=== PATIENT | male | born 1940 | race Two or more races ===

== ENCOUNTER 2017-11-05 09:27 | Outpatient (CLI) | payer BC | END 2017-11-05 09:46 | disposition home or self-care (01) | LOC: LAB 09:27 | DX: D70.2 Other drug-induced agranulocytosis (principal); D72.820 Lymphocytosis (symptomatic); I10 Essential (primary) hypertension; E78.2 Mixed hyperlipidemia; D50.8 Other iron deficiency anemias; D51.8 Other vitamin B12 deficiency anemias; B20 Human immunodeficiency virus [HIV] disease; B18.9 Chronic viral hepatitis, unspecified; D64.9 Anemia, unspecified; R10.9 Unspecified abdominal pain; E03.9 Hypothyroidism, unspecified; E78.5 Hyperlipidemia, unspecified; R80.9 Proteinuria, unspecified; E11.9 Type 2 diabetes mellitus without complications; R73.09 Other abnormal glucose; Z13.0 Encounter for screening for diseases of the blood and blood-forming organs and certain disorders involving the immune mechanism; Z13.220 Encounter for screening for lipoid disorders; Z13.29 Encounter for screening for other suspected endocrine disorder; I48.91 Unspecified atrial fibrillation; I48.92 Unspecified atrial flutter ==

== ENCOUNTER 2017-11-20 08:35 | Outpatient (CLI) | payer BC | END 2017-11-20 08:43 | disposition home or self-care (01) | LOC: LAB 08:35 | DX: I10 Essential (primary) hypertension (principal); I48.0 Paroxysmal atrial fibrillation; Z12.5 Encounter for screening for malignant neoplasm of prostate ==

== ENCOUNTER 2018-05-10 07:33 | Outpatient (CLI) | payer BC | END 2018-05-10 08:26 | disposition home or self-care (01) | LOC: LAB 07:33 | DX: E78.2 Mixed hyperlipidemia (principal); I48.0 Paroxysmal atrial fibrillation; I10 Essential (primary) hypertension; Z13.0 Encounter for screening for diseases of the blood and blood-forming organs and certain disorders involving the immune mechanism; E61.2 Magnesium deficiency; E55.9 Vitamin D deficiency, unspecified; Z13.29 Encounter for screening for other suspected endocrine disorder ==

== ENCOUNTER 2018-08-03 08:11 | Outpatient (CLI) | payer BC | END 2018-08-03 08:31 | disposition home or self-care (01) | LOC: LAB 08:11 | DX: D64.89 Other specified anemias (principal); R10.9 Unspecified abdominal pain; E78.49 Other hyperlipidemia ==

== ENCOUNTER 2018-10-29 12:05 | Outpatient (CLI) | payer BC | END 2018-10-29 16:26 | disposition home or self-care (01) | LOC: TOM 12:05 | DX: M54.2 Cervicalgia (principal); M15.4 Erosive (osteo)arthritis ==

== ENCOUNTER 2019-02-01 09:34 | Outpatient (CLI) | payer BC | END 2019-02-01 09:54 | disposition home or self-care (01) | LOC: LAB 09:34 | DX: E78.00 Pure hypercholesterolemia, unspecified (principal); I48.0 Paroxysmal atrial fibrillation; Z12.5 Encounter for screening for malignant neoplasm of prostate; E55.9 Vitamin D deficiency, unspecified; Z13.29 Encounter for screening for other suspected endocrine disorder; Z13.0 Encounter for screening for diseases of the blood and blood-forming organs and certain disorders involving the immune mechanism ==

== ENCOUNTER → 2019-02-01 13:14 | Outpatient (CLI) | payer BC | END | disposition home or self-care (01) | LOC: LAB 13:14 | DX: E55.9 Vitamin D deficiency, unspecified (principal); I48.0 Paroxysmal atrial fibrillation; E78.00 Pure hypercholesterolemia, unspecified; Z12.5 Encounter for screening for malignant neoplasm of prostate; I10 Essential (primary) hypertension; Z13.29 Encounter for screening for other suspected endocrine disorder; Z13.0 Encounter for screening for diseases of the blood and blood-forming organs and certain disorders involving the immune mechanism ==

== ENCOUNTER 2019-05-10 08:25 | Outpatient (CLI) | payer BC | END 2019-05-10 09:19 | disposition home or self-care (01) | LOC: LAB 08:25 | DX: I48.91 Unspecified atrial fibrillation (principal); N18.9 Chronic kidney disease, unspecified; I10 Essential (primary) hypertension ==

== ENCOUNTER 2019-05-25 08:47 | Outpatient (CLI) | payer BC | END 2019-05-25 11:40 | disposition home or self-care (01) | LOC: LAB 08:47 | DX: D64.89 Other specified anemias (principal); R10.84 Generalized abdominal pain; E03.8 Other specified hypothyroidism; R80.8 Other proteinuria; E11.9 Type 2 diabetes mellitus without complications ==

== ENCOUNTER → 2019-08-09 11:45 | Outpatient (CLI) | payer BC | END | disposition home or self-care (01) | LOC: LAB 11:45 | DX: I48.0 Paroxysmal atrial fibrillation (principal); Z13.0 Encounter for screening for diseases of the blood and blood-forming organs and certain disorders involving the immune mechanism; E55.9 Vitamin D deficiency, unspecified; I10 Essential (primary) hypertension; Z13.29 Encounter for screening for other suspected endocrine disorder; Z12.5 Encounter for screening for malignant neoplasm of prostate; Z13.220 Encounter for screening for lipoid disorders ==

== ENCOUNTER 2020-01-10 11:04 | Outpatient (CLI) | payer BC | END 2020-01-10 15:00 | disposition home or self-care (01) | LOC: LAB 11:04 | DX: I47.1 Supraventricular tachycardia (principal); R00.2 Palpitations; I10 Essential (primary) hypertension; I77.9 Disorder of arteries and arterioles, unspecified; R10.84 Generalized abdominal pain; D64.89 Other specified anemias; E78.49 Other hyperlipidemia; R80.8 Other proteinuria; E11.9 Type 2 diabetes mellitus without complications; E03.8 Other specified hypothyroidism ==